=== PATIENT | male | born 1985 | race African-American/Black ===

== ENCOUNTER 2024-06-19 03:47 | Emergency (ER) | payer MEDICAID ==
[~2024-06-19] VITALS: Ht 170.2 cm; Wt 95.8 kg
[~2024-06-19 03:47] MED LIST: ACET500T99 PO; IBUP-2213 PO; LOTC TP
[2024-06-19 04:00] VITALS: BP 157/98; PULSE 93; RESP 20; TEMP 98.5; O2SAT 94
[2024-06-19 04:24] VITALS: BP 157/98; PULSE 93; RESP 20; TEMP 98.5; O2SAT 94
[2024-06-19] MEDS ORDERED: NAPR-337 PO (05:13)
[2024-06-19] MEDS ORDERED: GABA300C PO (05:13)
[2024-06-19] MEDS: KETOROLAC 30 MG/ML VIAL IM ONE (05:18)
== END 2024-06-19 05:28 | disposition home or self-care (01) ==
LOC: MED 03:47
DX: S16.1XXA Strain of muscle, fascia and tendon at neck level, initial encounter (principal); I10 Essential (primary) hypertension; Z79.899 Other long term (current) drug therapy; X58.XXXA Exposure to other specified factors, initial encounter; Y92.89 Other specified places as the place of occurrence of the external cause; Y93.89 Activity, other specified; Y99.8 Other external cause status
CPT/HCPCS: 96372; 99283; J1885